=== PATIENT | female | born 1940 | race Two or more races ===

== ENCOUNTER 2025-02-19 15:47 | Inpatient (IN) | payer OTHER ==
[~2025-02-19] VITALS: Ht 152.4 cm; Wt 48.5 kg
[2025-02-19] MEDS ORDERED: TYLENOL ARTHRI650 MG PO (16:11)
--- NOTE | 2025-02-19 16:15 | NUR ---
PTE ALETRTA Y ORIENTADA X3 VIENE A ANIA POR REFERIDO DE DR THIBODEAUX EL CUAL VA A OPERAR MANANAEL DISCO DE LA LEESA DERECHA. SE MIDEN S/V Y CHAGO BICA.
[2025-02-19 18:00] LABS: BASO % 0.6 % (0.1-1.2); EOS # 0.20 (0.04-0.54); EOS % 1.6 % (0.7-7.0); LYMPH # 3.15 (1.18-3.74); LYMPH % 25.3 % (19.3-53.1); MEAN PLATELET VOLUME 10.80 fl (9.4-12.4); MONO # 1.44 (0.24-0.82); MONO % 11.6 % (4.7-12.5); NEUT # 7.57 (1.56-6.13); NEUT % 60.7 % (34.0-71.1); RED CELL DISTRIBUTION WIDTH 13.3 % (11.6-14.4)
--- NOTE | 2025-02-19 18:04 | NUR ---
SE ORIENTA PTE SOBRE TX MEDICO Y LA MISMA REFIERE ENTENDER Y [place][TAR. SE CANALIZA Y SE COLECTAN MUESTRAS DE LAB. SE REALIZA EKG ECTOR ORDEN MEDICA.
[2025-02-19 18:23] LABS: INR 1.01
[2025-02-19 18:27] LABS: ALT/SGPT 29.0 U/L (12-78); AST/SGOT 27.0 U/L (15-37); BILIRUBIN TOTAL 0.97 mg/dL (0.3-1.2); BUN CREA RATIO 26.0 (7.0-25.0); CREATININE SERUM 0.96 mg/dL (0.55-1.02); GFR 55.64; GLOBULINA 3.7 G/DL (2.4-3.5); GLUCOSE FASTING 179.0 mg/dL (65-100); OSMOLALITY SERUM 290.0 MOSM/KG (275-295)
[2025-02-19] MEDS ORDERED: 0.9 % SODIUM CHLORIDE 1,000 ML IV SCH (19:15)
[2025-02-19] MEDS ORDERED: MORPHINE SULFATE 2 MG/ML CARTRIDGE IV PRN (19:15)
[2025-02-19] MEDS ORDERED: ONDANSETRON HCL 4 MG in 0.9 % SODIUM CHLORIDE 50 ML IV PRN (19:15)
[2025-02-19] MEDS ORDERED: ACETAMINOPHEN 500 MG GEL..CAP PO PRN (19:15)
[2025-02-19 20:04] LABS: URINE APPEARANCE Clear; URINE BACTERIA 2931.0 uL (0.0-1933); URINE BILIRRUBIN Negative (NEGATIVE); URINE BLOOD Small; URINE COLOR Yellow; URINE EPITHELIAL CELLS 7.3 uL (0.0-38.8); URINE KETONE Negative (NEGATIVE); URINE LEUKOCYTE Small; URINE NITRATE Negative; URINE PROTEIN 30 (NEGATIVE); URINE RBC 21.4 uL (0.0-20.8); URINE UROBILINOGEN 0.2 E.U./dl; URINE WBC 178.0 uL (0.0-23.2)
[2025-02-19 20:08] LABS: URINE CAST 0.14 uL (0.0-1.40); URINE GLUCOSE 500 MG/DL (NEGATIVE)
[2025-02-19 20:44] VITALS: BP 160/78; O2SAT 98
[2025-02-20] MEDS ORDERED: FAMOTIDINE/PF 20 MG in 0.9 % SODIUM CHLORIDE 8 ML IV PUSH SCH (09:00)
[2025-02-20] MEDS ORDERED: LOSARTAN POTASSIUM 50 MG TABLET PO SCH (09:00)
[2025-02-20] MEDS ORDERED: CEFAZOLIN SODIUM 1,000 MG VIAL IV ONE (18:15)
[2025-02-20] MEDS ORDERED: LIDOCAINE HCL 1%/EPINEPHRINE 20ML VIAL IJ ONE (18:15)
[2025-02-20] MEDS ORDERED: BUPIVACAINE HCL 30 ML VIAL IJ ONE (18:15)
[2025-02-20] MEDS ORDERED: POVIDONE-IODINE 118 ML BOTT TOP ONE (18:15)
[2025-02-20] MEDS ORDERED: PERCOCET 5-3251 EACH PO (20:05)
[2025-02-20] MEDS ORDERED: DUI500 PO (20:05)
[2025-02-20] MEDS ORDERED: ALEVE220 M1 PO (20:05)
[2025-02-20 20:40] VITALS: BP 139/70; O2SAT 95
[2025-02-21 00:24] VITALS: BP 135/71; O2SAT 97
[2025-02-21 09:28] VITALS: BP 159/76; O2SAT 95
== END 2025-02-21 12:00 | disposition home or self-care (01) | DRG 512 ==
LOC: ER 15:47 → SURH 19:23 → SEC-K 19:23 → SURH 02-20 08:27
PROVIDERS: General Practice; ADMIT Orthopaedic Surgery; ATTEND Orthopaedic Surgery
PROC: 2W3AX2Z Immobilization of Right Upper Arm using Cast (ICD-10-PCS; 2025-02-20)
PROC: 0PSH04Z Reposition Right Radius with Internal Fixation Device, Open Approach (ICD-10-PCS; principal; 2025-02-20 18:00)
DX: S52.531A Colles' fracture of right radius, initial encounter for closed fracture (principal); S52.691A Other fracture of lower end of right ulna, initial encounter for closed fracture; M81.0 Age-related osteoporosis without current pathological fracture; I10 Essential (primary) hypertension; G62.9 Polyneuropathy, unspecified; E78.5 Hyperlipidemia, unspecified; W13.3XXA Fall through floor, initial encounter; Y93.9 Activity, unspecified; Y92.9 Unspecified place or not applicable